=== PATIENT | female | born 1985 | race African-American/Black ===

== ENCOUNTER 2017-08-12 14:55 | Inpatient (IN) | payer BC, OTHER ==
[~2017-08-12 14:55] MED LIST: OXYTOCIN 30 UNITS/LR 500 ML BAG IV
[2017-08-12 15:50] LABS: ADD MAN DIFF? NO
[2017-08-12 15:52] LABS: ABNORMAL IP MESSAGE 1; BASOPHILS % 0.2 % (0.0-2.0); EOSINOPHILS # 0.1 10^3/ul (0.0-0.5); EOSINOPHILS % 0.8 % (0.0-7.0); HEMATOCRIT 30.3 % (37.0-47.0); HEMOGLOBIN 8.8 g/dl (12.0-16.0); LYMPHOCYTES % 17.2 % (15.0-51.0); MONOCYTE # 1.1 10^3/ul (0.3-0.9); MONOCYTES % 9.6 % (0.0-11.0); NEUTROPHIL # 8.3 10^3/ul (1.6-7.5); NEUTROPHILS % 71.4 % (39.0-77.0); PLATELET COUNT 254 10^3/UL (140-415); RED BLOOD COUNT 4.39 10^6/ul (4.20-5.40); RED CELL DISTRIBUTION WIDTH 17.5 % (11.5-14.5)
[2017-08-12 15:52] LABS: WHITE BLOOD COUNT 11.6 10^3/ul (4.8-10.8)
[2017-08-12] MEDS ORDERED: OXYTOCIN 30 UNITS/LR 500 ML IV (16:00)
[2017-08-12] MEDS ORDERED: CARBOPROST 250 MCG INJ IM (16:00)
[2017-08-12] MEDS ORDERED: METHYLERGONOVINE 0.2 MG INJ IM (16:00)
[2017-08-12] MEDS ORDERED: MISOPROSTOL 200 MCG TAB PR (16:00)
[2017-08-12 16:05] LABS: MEAN PLATELET VOLUME 11.4 fl (7.4-10.4)
[2017-08-12] MEDS: LACTATED RINGER'S 1,000 ML IV ×2 (16:05→17:29)
[2017-08-12 16:06] LABS: POSITIVE DIFF @See below
[2017-08-12 16:12] LABS: INR 0.88; PT RATIO 0.9
[2017-08-12 16:13] LABS: PARTIAL THROMBOPLASTIN TIME 28.5 Sec (25.0-35.0)
[2017-08-12 16:44] LABS: HEPATITIS B SURFACE ANTIGEN NEGATIVE (NEGATIVE)
[2017-08-12] MEDS ORDERED: PHENYLephrine (100 MCG/ML) 10ML SYG (18:41)
[2017-08-12] MEDS ORDERED: ONDANSETRON 4 MG INJ (18:42)
[2017-08-12] MEDS ORDERED: OXYTOCIN 10 UNIT INJ (18:42)
[2017-08-12] MEDS ORDERED: BUPIVACAINE 0.75%/DEXT (SPINAL) 2 ML INJ (18:42)
[2017-08-12] MEDS ORDERED: morphine SULFATE/PF (10 MG/10 ML) INJ (18:42)
[2017-08-12] MEDS ORDERED: ONDANSETRON 4 MG INJ IV (20:00)
[2017-08-12] MEDS ORDERED: NALOXONE (0.4 MG/ML) INJ IV (20:00)
[2017-08-12] MEDS ORDERED: morphine 2 MG INJ IV (20:00)
[2017-08-12] MEDS: CEFAZOLIN 2 GM/50 ML (PMX) 50 ML IV (20:55)
[2017-08-12] MEDS: KETOROLAC 30 MG INJ IV (21:18)
[2017-08-12] MEDS: DIPHENHYDRAMINE 50 MG INJ IV (21:21)
[2017-08-12] MEDS: OXYTOCIN 30 UNITS/LR 500 ML IV (21:25)
[2017-08-13] MEDS ORDERED: HYDROCODONE/APAP (5/325) TAB PO (01:00)
[2017-08-13] MEDS ORDERED: MISOPROSTOL 200 MCG TAB PR (01:00)
[2017-08-13] MEDS ORDERED: OXYTOCIN 30 UNITS/LR 500 ML IV (01:00)
[2017-08-13] MEDS ORDERED: CARBOPROST 250 MCG INJ IM (01:00)
[2017-08-13] MEDS ORDERED: METHYLERGONOVINE 0.2 MG INJ IM (01:00)
[2017-08-13] MEDS ORDERED: NA PHOSPHATE/BIPHOS 133 ML ENEMA PR (01:00)
[2017-08-13] MEDS ORDERED: LANOLIN 7 GM TUBE TOP (01:00)
[2017-08-13] MEDS ORDERED: NACL 0.9% 3 ML SYG IV (01:00)
[2017-08-13] MEDS: OXYTOCIN 30 UNITS/LR 500 ML IV (02:25)
[2017-08-13 07:29] LABS: ADD MAN DIFF? NO
[2017-08-13 07:35] LABS: WHITE BLOOD COUNT 11.5 10^3/ul (4.8-10.8)
[2017-08-13 07:35] LABS: ABNORMAL IP MESSAGE 1; BASOPHILS % 0.2 % (0.0-2.0); EOSINOPHILS # 0.1 10^3/ul (0.0-0.5); EOSINOPHILS % 0.5 % (0.0-7.0); HEMATOCRIT 25.6 % (37.0-47.0); HEMOGLOBIN 7.4 g/dl (12.0-16.0); LYMPHOCYTES # 1.1 10^3/ul (0.8-2.9); LYMPHOCYTES % 9.6 % (15.0-51.0); MEAN CORPUSCULAR HGB CONC 28.9 g/dl (32.0-37.0); MEAN CORPUSCULAR VOLUME 69.2 fl (82.0-101.0); MEAN PLATELET VOLUME 11.3 fl (7.4-10.4); MONOCYTE # 1.1 10^3/ul (0.3-0.9); MONOCYTES % 9.5 % (0.0-11.0); NEUTROPHIL # 9.1 10^3/ul (1.6-7.5); NEUTROPHILS % 79.6 % (39.0-77.0); PLATELET COUNT 205 10^3/UL (140-415); RED CELL DISTRIBUTION WIDTH 17.2 % (11.5-14.5)
[2017-08-13 07:39] LABS: POSITIVE DIFF @See below
[2017-08-13] MEDS: KETOROLAC 30 MG INJ IV ×2 (08:33→18:22)
[2017-08-13] MEDS: LACTATED RINGER'S 1,000 ML IV ×3 (13:12→19:21)
[2017-08-13] MEDS: IBUPROFEN 800 MG TAB PO (21:49)
[2017-08-13 22:38] LABS: RAPID PLASMA REAGIN NONREACTIVE (NR)
[2017-08-14] MEDS: LACTATED RINGER'S 1,000 ML IV (00:31)
[2017-08-14] MEDS: IBUPROFEN 800 MG TAB PO ×3 (05:24→22:35)
[2017-08-14] MEDS: HYDROCODONE/APAP (5/325) TAB PO (12:14)
[2017-08-14 12:38] LABS: RHOGAM PROFILE 1 1
[2017-08-15] MEDS: IBUPROFEN 800 MG TAB PO (06:33)
[2017-08-15] MEDS ORDERED: MEASLES,MUMPS,RUBELLA VACCINE INJ SC* (09:00)
[2017-08-15] MEDS: DIPHTH/TET/ACEL PERTUSS (ADULT) 0.5 ML VIAL IM* (09:25)
== END 2017-08-15 13:30 | disposition home or self-care (01) | DRG 765 ==
LOC: L-D 14:55 → PP1 22:13
PROVIDERS: Obstetrics & Gynecology
PROC: 10D00Z1 Extraction of Products of Conception, Low, Open Approach (ICD-10-PCS; principal; 2017-08-12)
PROC: 4A1HXCZ Monitoring of Products of Conception, Cardiac Rate, External Approach (ICD-10-PCS; 2017-08-12)
PROC: 3E0334Z Introduction of Serum, Toxoid and Vaccine into Peripheral Vein, Percutaneous Approach (ICD-10-PCS; 2017-08-14)
PROC: 3E0234Z Introduction of Serum, Toxoid and Vaccine into Muscle, Percutaneous Approach (ICD-10-PCS; 2017-08-15)
DX: O34.219 Maternal care for unspecified type scar from previous cesarean delivery (principal); Z68.43 Body mass index [BMI] 50.0-59.9, adult; O99.214 Obesity complicating childbirth; E66.01 Morbid (severe) obesity due to excess calories; Z3A.39 39 weeks gestation of pregnancy; Z37.0 Single live birth; Z23 Encounter for immunization; Z29.13 Encounter for prophylactic Rho(D) immune globulin
CPT/HCPCS: 85025; 85610; 85730; 86592; 86850; 86870; 86885; 86900; 86901; 87340; 90715; 99464